=== PATIENT | male | born 1990 | race Caucasian/White ===

== ENCOUNTER 2021-02-25 09:21 | Emergency (ER) | payer BC, OTHER ==
[~2021-02-25] VITALS: Ht 175.3 cm; Wt 82.3 kg
[2021-02-25 09:26] VITALS: BP 149/86
== END 2021-02-25 10:48 | disposition home or self-care (01) ==
LOC: ER 09:21
DX: K00.6 Disturbances in tooth eruption (principal); K08.89 Other specified disorders of teeth and supporting structures; Z72.89 Other problems related to lifestyle
CPT/HCPCS: 99282